=== PATIENT | female | born 2000 | race Two or more races ===

== ENCOUNTER 2019-05-01 00:04 | Emergency (ER) | payer OTHER ==
[2019-05-01] MEDS ORDERED: Lidocaine 1% MPF* 2 ML VIAL INJ ONE (00:27)
[2019-05-01] MEDS ORDERED: Bacitracin OINTMENT* 0.5% 0.5 oz TUBE TOPICAL ONE (01:02)
--- NOTE | 2019-05-01 01:02 | ED ---
Skin Complaint - HPI Summary HPI Summary: 19 yo female presents with glass in her foot. She tells me that this evening she was walking barefoot in the locker room and stepped on a piece of glass that became lodged in her heel. She tried to remove it at home with tweezers, but could not - prompting her visit to the ED. She has mild pain to the area. She believes her tetanus is UTD. - History of Current Complaint Chief Complaint: EDExtremityLower Time Seen by Provider: 05/01/19 00:27 Stated Complaint: GLASS IN L FOOT PER PT Hx Obtained From: Patient Onset Severity: Mild Current Severity: Mild Pain Intensity: 3 Pain Scale Used: 0-10 Numeric - Allergy/Home Medications Allergies/Adverse Reactions: Allergies Allergy/AdvReac Type Severity Reaction Status Date / Time amoxicillin [From Augmentin] Allergy Unknown Verified 05/01/19 00:32 Reaction Details azithromycin Allergy Unknown Verified 05/01/19 00:32 Reaction Details clavulanic acid Allergy Unknown Verified 05/01/19 00:32 [From Augmentin] Reaction Details Sulfa (Sulfonamide Allergy Unknown Verified 05/01/19 00:32 Antibiotics) Reaction Details Home Medications: Home Medications Montelukast Sodium 10 mg PO DAILY 05/01/19 [History Confirmed 05/01/19] Symbicort 160/4.5 (NF) 160 mg INH DAILY 05/01/19 [History Confirmed 05/01/19] PMH/Surg Hx/FS Hx/Imm Hx Endocrine/Hematology History: Denies: Hx Diabetes Cardiovascular History: Denies: Hx Hypertension, Hx Pacemaker/ICD Respiratory History: Reports: Hx Asthma History: Denies: Hx Renal Disease Musculoskeletal History: Denies: Hx Osteoporosis Sensory History: Denies: Hx Hearing Aid Neurological History: Denies: Hx CVA, Hx Headaches, Hx Migraine Psychiatric History: Denies: Hx Panic Disorder - Surgical History Surgical History: Yes Surgery Procedure, Year, and Place: APPENDECTOMY. TONSILLECTOMY Infectious Disease History: No Infectious Disease History: Denies: Traveled Outside the [place] in Last 30 Days - Family History Known Family History: Positive: Non-Contributory - Social History Occupation: Student Lives: Dormitory/Roommates Alcohol Use: Occasionally Substance Use Type: Reports: None Smoking Status (MU): Never Smoked Tobacco Review of Systems Constitutional: Negative Cardiovascular: Negative Respiratory: Negative Musculoskeletal: Negative Skin: Other - FB in left heel Neurological: Negative Psychological: Normal All Other Systems Reviewed And Are Negative: No Physical Exam - Summary Physical Exam Summary: GENERAL: NAD. WDWN. No pain distress. SKIN: LEFT HEEL: Obvious FB on plantar aspect. Brown/black in color. Mild TTP. CHEST: No accessory muscle use. Breathing comfortably and in no distress. CV: Pulses intact. Cap refill <2seconds NEURO: Alert. PSYCH: Age appropriate behavior. Triage Information Reviewed: Yes Vital Signs On Initial Exam: Initial Vitals Temp Pulse Resp BP Pulse Ox 97.8 F 65 16 129/80 98 05/01/19 00:05 05/01/19 00:05 05/01/19 00:05 05/01/19 00:05 05/01/19 00:05 Vital Signs Reviewed: Yes Diagnostics - Vital Signs Vital Signs Temp Pulse Resp BP Pulse Ox 05/01/19 00:05 97.8 F 65 16 129/80 98 - Laboratory Lab Statement: Any lab studies that have been ordered have been reviewed, and results considered in the medical decision making process. - Radiology XR Radiology Interpretation Completed By: ED Physician Summary of Radiographic Findings: Small FB on heel. 2-3mm depth Course/Dx - Course Course Of Treatment: Hemostats were used to remove the shard of glass. Pt had complete resolution of her symptosm. Area bandaged with bacitracin and bandaid. Advised to apply ice and change band-aid daily until well healed. - Diagnoses Provider Diagnoses: Foreign body in foot, left Discharge ED - Sign-Out/Discharge Documenting (check all that apply): Patient Departure Patient Received Moderate/Deep Sedation with Procedure: No - Discharge Plan Condition: Stable Disposition: HOME Patient Education Materials: Soft Tissue Foreign Body (ED) Referrals: Tony Valerio DO [Primary Care Provider] - Additional Instructions: If you develop a fever, shortness of breath, chest pain, new or worsening symptoms - please call your PCP or go to the ED immediately. Change the band-aid daily until well healed - Billing Disposition and Condition Condition: STABLE Disposition: Home
[2019-05-01 01:09] VITALS: BP 121/79
== END 2019-05-01 01:07 | disposition home or self-care (01) ==
LOC: ED 00:04
DX: S90.852A Superficial foreign body, left foot, initial encounter (principal); W22.8XXA Striking against or struck by other objects, initial encounter; Y92.89 Other specified places as the place of occurrence of the external cause; Z79.899 Other long term (current) drug therapy; Z88.1 Allergy status to other antibiotic agents; Z88.2 Allergy status to sulfonamides
CPT/HCPCS: 99282